=== PATIENT | female | born 1980 | race Hispanic/Latino ===

== ENCOUNTER 2022-02-16 07:51 | Outpatient (CLI) | payer BC | END 2022-02-16 07:52 | disposition home or self-care (01) | LOC: CSHULT 07:51 | PROVIDERS: ATTEND Family Medicine | DX: R74.8 Abnormal levels of other serum enzymes (principal); K76.0 Fatty (change of) liver, not elsewhere classified | CPT/HCPCS: 76700 ==

== ENCOUNTER 2022-02-16 08:51 | Outpatient (CLI) | payer BC | END 2022-02-16 08:52 | disposition home or self-care (01) | LOC: CSHMAMMO 08:51 | PROVIDERS: ATTEND Family Medicine | DX: Z12.31 Encounter for screening mammogram for malignant neoplasm of breast (principal) | CPT/HCPCS: 77063; 77067 ==

== ENCOUNTER 2022-05-28 15:04 | Outpatient (CLI) | payer BC ==
[~2022-05-28 15:04] MED LIST: Magnevist 469MG/ML 20 ML VIAL ONE
== END 2022-05-28 15:05 | disposition home or self-care (01) ==
LOC: CSHMRI 15:04
PROVIDERS: ATTEND Family Medicine
DX: G44.52 New daily persistent headache (NDPH) (principal)
CPT/HCPCS: 70553

== ENCOUNTER 2023-02-28 15:24 | Outpatient (CLI) | payer BC | END 2023-02-28 15:25 | disposition home or self-care (01) | LOC: CSHMAMMO 15:24 | PROVIDERS: ATTEND Family Medicine | DX: Z12.31 Encounter for screening mammogram for malignant neoplasm of breast (principal); N64.89 Other specified disorders of breast; Z80.3 Family history of malignant neoplasm of breast | CPT/HCPCS: 77063; 77067 ==

== ENCOUNTER 2023-03-05 08:36 | Outpatient (CLI) | payer BC | END 2023-03-05 08:37 | disposition home or self-care (01) | LOC: CSHMAMMO 08:36 | PROVIDERS: ATTEND Family Medicine | DX: N64.89 Other specified disorders of breast (principal) | CPT/HCPCS: G0279 ==

== ENCOUNTER 2024-03-04 08:28 | Outpatient (CLI) | payer BC | END 2024-03-04 08:29 | disposition home or self-care (01) | LOC: CSHMAMMO 08:28 | PROVIDERS: ATTEND Family Medicine | DX: Z12.31 Encounter for screening mammogram for malignant neoplasm of breast (principal); Z80.3 Family history of malignant neoplasm of breast | CPT/HCPCS: 77063; 77067 ==

== ENCOUNTER 2025-03-31 11:30 | Outpatient (CLI) | payer BC | END 2025-03-31 11:31 | disposition home or self-care (01) | LOC: CSHMAMMO 11:30 | PROVIDERS: ATTEND Nurse Practitioner Family | DX: Z12.31 Encounter for screening mammogram for malignant neoplasm of breast (principal); Z80.3 Family history of malignant neoplasm of breast | CPT/HCPCS: 77063; 77067 ==